=== PATIENT | female | born 1985 | race Caucasian/White ===

== ENCOUNTER 2018-06-20 18:51 | Emergency (ER) | payer BC ==
--- NOTE | 2018-06-20 19:21 | Emergency Department Record ---
History of Present Illness - General Chief Complaint: Abdominal Pain Stated Complaint: NUMBNESS INHANDS,ABDOMINAL PAIN,BACK CRAMPS Time Seen by Provider: 06/20/18 19:16 Source: Patient Mode of Arrival: Ambulatory Limitations: No limitations - History of Present Illness Initial Comments: 32 yo female presents to ED for evaluation of nausea, vomiting, and body aches all over. Patient reports similar symptoms previously related to hypocalcemia, took calcium supplements for some time however her levels improved and has not taken calcium supplements in some time. Patient reports a history of RA as well , reports she has been unable to keep any of her RA meds down today due to vomiting symptoms. Patient denies fevers, chills, or recent illness symptoms. MD Complaint: Other Onset/Timin -: Hour(s) Location: Diffuse Radiation: None, Back, Bilateral flank Severity scale (1-10): 8 Quality: Burning Consistency: Constant Improves With: Nothing Worsens With: Movement Context: Other Associated Symptoms: Diarrhea, Vomiting - Related Data LMP (females 10-50): This week Patient : No Home Medications Medication Instructions Recorded Confirmed Last Taken Garlic [Odor Free Garlic] 100 mg PO DAILY 06/20/18 06/20/18 06/20/18 Hydroxychloroquine Sulfate 200 mg PO BID 06/20/18 06/20/18 06/20/18 [Plaquenil] [place]-3 Fatty Acids/Fish Oil [Fish 1 each PO DAILY 06/20/18 06/20/18 06/20/18 Oil 1,000 mg Capsule] Piroxicam 20 mg PO ASDIR PRN 06/20/18 06/20/18 Unknown Sulfasalazine [Azulfidine] 1,000 mg PO BID 06/20/18 06/20/18 06/20/18 Previous Rx's Medication Instructions Recorded Ondansetron [Zofran Odt] 4 mg PO Q6H PRN #15 tab.rapdis 06/20/18 Allergies Allergy/AdvReac Type Severity Reaction Status Date / Time No Known Drug Allergies Allergy Verified 12/21/15 11:47 Travel Screening - Travel/Exposure Within Last 30 Days Have you traveled within the last 30 days?: No - Travel/Exposure Within Last Year Have you traveled outside the [place] in the last year?: No - Additonal Travel Details Have you been exposed to anyone with a communicable illness?: No - Travel Symptoms Symptom Screening: None Review of Systems Constitutional: Denies: Chills, Fever, Malaise, Night sweats Eyes: Denies: Eye discharge, Eye pain ENT: Denies: Congestion, Ear pain, Epistaxis Respiratory: Denies: Cough, Dyspnea Cardiovascular: Denies: Chest pain, Dyspnea on exertion Endocrine: Denies: Fatigue, Heat or cold intolerance Gastrointestinal: Reports: Abdominal pain, Nausea, Vomiting. Denies: Constipation Genitourinary: Denies: Incontinence, Retention Musculoskeletal: Reports: Arthralgia, Back pain, Myalgia. Denies: Gout, Joint swelling Skin: Denies: Bruising, Change in color Neurological: Denies: Abnormal gait, Confusion, Seizure Psychiatric: Denies: Anxiety Hematological/Lymphatic: Denies: Anemia, Blood Clots Past Medical History - SOCIAL HISTORY Smoking Status: Current every day smoker Alcohol Use: Rare Drug Use: None - RESPIRATORY Hx Respiratory Disorders: No - CARDIOVASCULAR Hx Cardio Disorders: No - NEURO Hx Neuro Disorders: Yes Hx Headaches: Yes - GI Hx GI Disorders: Yes Hx Reflux: Yes (barrat's esophagus) - Hx Genitourinary Disorders: No - ENDOCRINE Hx Endocrine Disorders: No - MUSCULOSKELETAL Hx Musculoskeletal Disorders: Yes Hx Arthritis: Yes (rumitoid) Hx Back Injury: Yes - PSYCH Hx Psych Problems: Yes Hx Anxiety: Yes - HEMATOLOGY/ONCOLOGY Hx Hematology/Oncology Disorders: No Family Medical History Any Significant Family History?: Yes Family Hx Comment (NOT TO BE USED IN PLACE OF ITEMS BELOW): diabetes, ca. brother has MS. sister has "hole in heart" Physical Exam - General General Appearance: Alert, Oriented x3, Cooperative, Moderate distress, Anxious Limitations: No limitations - Head Head exam: Atraumatic, Normocephalic, Normal inspection Head exam detail: negative: Abrasion, Contusion, Rdz's sign, General tenderness, Hematoma, Laceration - Eye Eye exam: Normal appearance. negative: Conjunctival injection, Periorbital swelling, Periorbital tenderness, Scleral icterus - ENT Ear exam: negative: Auricular hematoma, Auricular trauma Nasal Exam: negative: Active bleeding, Discharge, Dried blood, Foreign body Mouth exam: negative: Drooling, Laceration, Muffled voice, Tongue elevation - Neck Neck exam: Normal inspection. negative: Meningismus, Tenderness - Respiratory Respiratory exam: Normal lung sounds bilaterally. negative: Rales, Respiratory distress, Rhonchi, Stridor - Cardiovascular Cardiovascular Exam: Regular rate, Normal rhythm, Normal heart sounds - GI/Abdominal GI/Abdominal exam: Soft. negative: Rebound, Rigid, Tenderness - Rectal Rectal exam: Deferred - exam: Deferred - Extremities Extremities exam: Normal inspection. negative: Pedal edema, Tenderness - Back Back exam: Reports: CVA tenderness (R), CVA tenderness (L) - Neurological Neurological exam: Alert, Oriented X3. negative: Motor sensory deficit - Psychiatric Psychiatric exam: Normal affect, Normal mood - Skin Skin exam: Normal color. negative: Abrasion Type of lesion: negative: abrasion Course Vital Signs 06/20/18 19:02 Temperature 98.4 F Pulse Rate 103 H Respiratory 22 Rate Blood Pressure 129/71 Pulse Ox 100 - Reevaluation(s) Reevaluation #1: 06/20/18 19:29 EKG: NSR 87 Normal axis, normal intervals-no evidence for hypocalcemia, normal QT interval present. No acute ST-T wave changes Reevaluation #2: 06/20/18 19:49 Patient was updated on her EKG findings which do not demonstrate evidence for hypocalcemia, Ionized Ca level send to [facility] for analysis. Patient resting more comfortably at this time. Reevaluation #3: 06/20/18 20:11 Laboratory studies were reviewed and are grossly unremarkable except for: WBC 12.5, 89% neutrophils. Reevaluation #4: 06/20/18 21:05 Mayra has just arrived for transport to [facility]. Reevaluation #5: 06/20/18 22:03 Ionized calcium has resulted from [facility] and is normal. Patient was again updated and reassessed, reports that her pain symptoms are improved (6/10), will discharge home on Zofran as needed to keep her home mediations down at home. Patient appears stable for discharge at this time. Medical Decision Making - Lab Data Result diagrams: 06/20/18 19:05 06/20/18 19:05 Disposition Disposition: Discharge Clinical Impression: Nausea & vomiting Qualifiers: Vomiting type: unspecified Vomiting Intractability: non-intractable Qualified Code(s): R11.2 - Nausea with vomiting, unspecified Rheumatoid arthritis Qualifiers: Rheumatoid arthritis location: unspecified site Rheumatoid factor presence: unspecified presence Qualified Code(s): M06.9 - Rheumatoid arthritis, unspecified Disposition: Home, Self-Care Condition: (2) Stable Instructions: Acute Nausea and Vomiting (ED) Additional Instructions: Return to ED if your symptoms worsen or if you have any concerns. Zofran as directed. Follow-up with your family doctor in 3-5 days as directed. Prescriptions: Ondansetron [Zofran Odt] 4 mg PO Q6H PRN #15 tab.rapdis PRN Reason: Nausea/Vomiting Forms: Patient Portal Access Time of Disposition: 22:06 Quality - Quality Measures Quality Measures: N/A - Blood Pressure Screening Does Patient Have Any of the Following: No Blood Pressure Classification: Pre-Hypertensive BP Reading Systolic Measurement: 129 Diastolic Measurement: 71 Screening for High Blood Pressure: < Pre-Hypertensive BP, F/U Documented > [ [id number]] Pre-Hypertensive Follow-up Interventions: Referral to alternative/primary care provider.
[2018-06-20 19:22] LABS: HEMATOCRIT 41.5 % (35.0-47.0); HEMOGLOBIN 14.3 gm/dl (11.6-16.0); MEAN CELL VOLUME 92.2 fl (81-97); MEAN CORPUSCULAR HEMOGLOBIN 31.8 pg (27-33); MEAN CORPUSCULAR HGB CONC 34.5 g/dl (32-36); MEAN PLATELET VOLUME 9.9 fl (7.4-10.4); PLATELET COUNT 314 K/uL (130-400); WHITE BLOOD COUNT W/O DIFF 12.5 K/uL (4.2-12.2)
[2018-06-20] MEDS: ONDANSETRON HCL IV 4 MG/2 ML VIAL IVP ONE (19:25)
[2018-06-20] MEDS: KETOROLAC 30 MG/ML VIAL IVP ONE (19:25)
[2018-06-20] MEDS: 0.9 % SODIUM CHLORIDE 1000ML 1,000 ML IV SCH (19:25)
[2018-06-20 19:35] LABS: PLATELET ESTIMATE NORMAL (NORMAL)
[2018-06-20 20:00] LABS: BLOOD UREA NITROGEN 19 mg/dL (6-20)
[2018-06-20 20:01] LABS: CREATININE 0.9 mg/dL (0.5-0.9); EST GLOMERULAR FILTRATION RATE > 60 mL/min; TOTAL PROTEIN 7.3 g/dL (6.6-8.7)
[2018-06-20 20:03] LABS: GLUCOSE,RANDOM 114 mg/dL (74-109)
[2018-06-20 20:06] LABS: ALB/GLOB RATIO 1.7 (1.1-1.8); ALBUMIN 4.6 g/dL (4.0-5.0); ALKALINE PHOSPHATASE 53 U/L (35-104); ALT/SGPT 19 U/L (<33); AST/SGOT 14 U/L (10.0-35.0)
[2018-06-20] MEDS: ONDANSETRON 4 MG ODT TABLET SL ONE (22:23)
== END 2018-06-20 22:28 | disposition home or self-care (01) ==
LOC: ER 18:51
DX: R11.2 Nausea with vomiting, unspecified (principal); M06.9 Rheumatoid arthritis, unspecified; R20.0 Anesthesia of skin; R19.7 Diarrhea, unspecified; F17.210 Nicotine dependence, cigarettes, uncomplicated
CPT/HCPCS: 80053; 85027; 93005; 93010; 96374; 96375; 99284; J1885; J2405; J7030